=== PATIENT | female | born 1995 | race Caucasian/White ===

== ENCOUNTER 2020-01-16 10:35 | Emergency (ER) | payer OTHER ==
[~2020-01-16] VITALS: Ht 165.1 cm; Wt 59.1 kg
[2020-01-16 12:33] VITALS: BP 130/78
--- NOTE | 2020-01-16 15:05 | REP ---
LEFT HAND, FOUR VIEWS: There is no evidence of an acute fracture, dislocation or intrinsic bone disease. IMPRESSION: No fracture or dislocation. Electronically Signed by Hermelindo Chaparro MD 01/16/2020 09:49 P
== END 2020-01-16 12:30 | disposition home or self-care (01) ==
LOC: M ED 10:35 → EDBD 10:35 → M ED 12:30
DX: S63.615A Unspecified sprain of left ring finger, initial encounter (principal); V40.5XXA Car driver injured in collision with pedestrian or animal in traffic accident, initial encounter; Y92.410 Unspecified street and highway as the place of occurrence of the external cause